=== PATIENT | male | born 1995 | race Two or more races ===

== ENCOUNTER 2022-07-02 09:14 | Emergency (ER) | payer MEDICAID ==
[~2022-07-02] VITALS: Ht 170.2 cm; Wt 90.0 kg
[2022-07-02] MEDS ORDERED: LEVETIRACETAM 500MG PREMIX 100 ML IV ONE (10:15)
[2022-07-02] MEDS ORDERED: SODIUM CHLORIDE 0.9% 1,000 ML IV ONE (10:15)
[2022-07-02 10:40] LABS: BASOPHILS % 0.4 % (0.0-2.0); HEMOGLOBIN. 14.1 g/dL (14.0-18.0); LYMPHOCYTES % 13.8 % (20.0-50.0); MEAN CORPUSCULAR HEMOGLOBIN 31.2 pg (28.0-32.0); MEAN PLATELET VOLUME 7.3 fl (7.4-10.4); MONOCYTES % 7.3 % (2.0-8.0); NEUTROPHILS % 77.5 % (40.0-76.0); PLATELET 282 x1000/uL (130-400); RED BLOOD CELL COUNT 4.51 mill/uL (4.7-6.1); RED CELL DISTRIBUTION WIDTH 13.5 % (11.6-14.6)
[2022-07-02 10:50] LABS: CHLORIDE 107 mEq/L (98-107)
[2022-07-02 10:58] LABS: CARBAMAZEPINE 7.7 ug/mL (4-12)
[2022-07-02 11:01] LABS: VALPROIC ACID < 3.0 ug/mL (50-100)
[2022-07-02 14:00] VITALS: BP 107/74
[2022-07-02] MEDS ORDERED: CARB300C9 MT (15:21)
== END 2022-07-02 16:09 | disposition home or self-care (01) ==
LOC: EDBD 09:14 → ER 09:14
DX: R56.9 Unspecified convulsions (principal)
CPT/HCPCS: 36415; 70450; 80053; 80156; 80165; 80184; 80185; 85025; 93005; 96365; 96366; 99285; C1893; J1953; J7030; Z7610

== ENCOUNTER 2024-03-07 19:19 | Emergency (ER) | payer MEDICAID, OTHER ==
[~2024-03-07] VITALS: Ht 175.3 cm; Wt 102.0 kg
[~2024-03-07 19:19] MED LIST: CARB300C9 MT
[2024-03-07 19:36] VITALS: TEMP 98.3; O2SAT 97
[2024-03-07] MEDS: PHENYTOIN SODIUM EXTENDED 100MG CAPSULE PO ONE (20:30)
[2024-03-07] MEDS: LEVETIRACETAM 1000MG PREMIX 100 ML IV ONE (20:30)
[2024-03-07 20:55] LABS: BASOPHILS % 0.7 % (0.0-2.0); EOSINOPHILS % 2.4 % (0.0-5.0); HEMATOCRIT. 40.7 % (42.0-52.0); MEAN CORPUSCULAR HEMOGLOBIN 30.1 pg (28.0-32.0); MEAN CORPUSCULAR HGB CONC 34.3 g/dL (31.0-37.0); MEAN CORPUSCULAR VOLUME 87.6 fL (80.0-94.0); MEAN PLATELET VOLUME 7.2 fl (7.4-10.4); MONOCYTES % 7.1 % (2.0-8.0); NEUTROPHILS % 71.8 % (40.0-76.0); PLATELET 337 x1000/uL (130-400); RED BLOOD CELL COUNT 4.65 mill/uL (4.7-6.1); RED CELL DISTRIBUTION WIDTH 13.5 % (11.6-14.6); WHITE BLOOD COUNT 11.3 x1000/uL (4.5-11.0)
[2024-03-07 21:01] LABS: CHLORIDE 108 mEq/L (98-107); POTASSIUM 3.8 mEq/L (3.5-5.1); SODIUM 139 mEq/L (136-145)
[2024-03-07 21:02] LABS: CALCIUM 9.4 mg/dL (8.7-10.4); CARBON DIOXIDE 24 mEq/L (21-32)
[2024-03-07 21:07] LABS: CREATININE 0.8 mg/dL (0.6-1.3); GLUCOSE 111 mg/dL (70-105); UREA NITROGEN BLOOD 12 mg/dL (9-23)
[2024-03-07 21:08] LABS: TROPONIN I HIGH SENSITIVITY 16 ng/L (3.0-53)
[2024-03-07 21:09] LABS: ALANINE AMINOTRANSFERASE 44 IU/L (10-49); ALBUMIN 4.8 g/dL (3.2-4.8); ASPARTATE AMINOTRANSFERASE 28 IU/L (<34)
[2024-03-07 21:10] LABS: BILIRUBIN TOTAL 0.3 mg/dL (0.1-1.0); PROTEIN TOTAL 7.8 g/dL (6.0-8.3)
[2024-03-07 21:12] LABS: BILIRUBIN DIRECT < 0.1 mg/dL (<=3.0); ETHANOL BLOOD < 10 mg/dL (<10)
[2024-03-07 22:55] VITALS: BP 139/75; PULSE 89; RESP 18
== END 2024-03-07 22:58 | disposition home or self-care (01) ==
LOC: ER 19:19
DX: R56.9 Unspecified convulsions (principal)
CPT/HCPCS: 80076; 80048; 80320; 82962; 85025; 84484; 36415; 99283; J1953; Z7610; G0480